=== PATIENT | male | born 2000 | race Two or more races ===

== ENCOUNTER 2020-05-20 15:10 | Emergency (ER) | payer MEDICAID, OTHER ==
[~2020-05-20] VITALS: Ht 172.7 cm; Wt 98.9 kg
[2020-05-20 15:35] VITALS: BP 115/58
== END 2020-05-20 15:35 ==
LOC: ER 15:10
DX: F17.210 Nicotine dependence, cigarettes, uncomplicated; Y09 Assault by unspecified means

== ENCOUNTER 2024-06-11 10:05 | Emergency (ER) | payer MEDICAID, OTHER ==
[~2024-06-11] VITALS: Ht 180.3 cm; Wt 99.2 kg
[2024-06-11 10:43] VITALS: BP 120/76; PULSE 68; RESP 17; TEMP 98.7; O2SAT 97
--- NOTE | 2024-06-11 11:09 | DVH ---
XY L ELBOW 3 VIEW XRAY, INDICATION: r/o fx TECHNICAL DATA: Frontal, oblique and lateral views were obtained of the left elbow. COMPARISON: None FINDINGS: Mildly displaced radial head fracture. Joint spaces are maintained. Alignment at the joint is anatomi c. Soft tissues are within normal limits. No joint effusion is demonstrated. IMPRESSION: Mildly displaced radial head fracture.
--- NOTE | 2024-06-11 11:11 | DVH ---
XY L WRIST 3+ VIEW XRAY, INDICATION: r/o fx TECHNICAL DATA: Frontal , bilateral oblique, and lateral views were obtained of the left wrist. COMPARISON: None FINDINGS: No fracture is identified. Joint spaces are maintained. Alignment is anatomic. Ulnar variance is neut ral. Soft tissues are within normal limits. IMPRESSION: No acute fracture or dislocation of the left wrist.
--- NOTE | 2024-06-11 11:11 | DVH ---
CLINICAL HISTORY: Rule out fracture. No other clinical information provided. TECHNIQUE: Single PA view of the chest and AP and oblique views of the left ribs were obtained. COMPARISON: None FINDINGS: Lungs are clear. No focal consolidation, pneumothorax, or pleural effusion. Cardiac and me diastinal contours are within normal limits in size. Pulmonary vasculature is normal. No evidence of acute fracture identified in the left ribs. IMPRESSION: 1. No evidence of acute disease in the chest. 2. No acute fracture identified in the left ribs.
[2024-06-11] MEDS ORDERED: IBUP-1455 PO (11:30)
[2024-06-11] MEDS: HYDROcodone-ACET 7.5/325MG TAB PO ONE (11:30)
[2024-06-11] MEDS ORDERED: HYDR-4902 PO (11:30)
--- NOTE | 2024-06-11 11:31 | ED.PDOC ---
Musculoskeletal HPI Comments 29-year-old male presents for a possible fractures to the left elbow, left rib and the left wrist after he fell from a 7 ft roof yesterday. Reports his pants got stuck on a nail causing him to fall forward landing on his left side and pain is currently rated as moderate to severe Denies chest pain shortness of breath denies hitting head LOC or taking blood thinners Chief Complaint: Upper Extremity Time Seen by MD: 10:31 Primary Care Provider: none Reviewed Notes: Nurses Notes, Medications, Allergies Allergies: Coded Allergies: NO KNOWN ALLERGIES (Unverified , 05/20/20) Home Meds Active Scripts Ibuprofen Micronized (Ibuprofen) 800 Mg Tab, 800 MG PO TID for 10 Days, #30 TAB 0 Refills Prov:ALLEY RUTLEDGE SECRETARY BOOK KEEPER 06/11/24 Hydrocodone-Acetaminophen (Hydrocodone Bitartrate/AC 5-325 mg) 1 Tab Tab, 1 TAB PO Q8HP PRN for 2 Days, #6 TAB 0 Refills Prov:ALLEY RUTLEDGE SECRETARY BOOK KEEPER 06/11/24 Information Source: Patient Mode of Arrival: Ambulatory Past Medical History PAST MEDICAL HISTORY: Asthma Surgical History: Denies all surgeries Family History Family History: No family hx of Cancer, No family hx of DM, No family hx of Heart angel Social History Smoker: Cigarettes Alcohol: Occasionally Drugs: Marijuana Lives In: Home All Other Systems: Reviewed and Negative (per hpi) Physical Exam General Appearance: No Apparent Distress, Normal HEENT: Head (Head is normocephalic), Normal ENT Inspection, Pharynx Normal, TMs Normal Neck: Full Range of Motion, Non-Tender, Normal, Normal Inspection Respiratory: Chest Non-Tender, Lungs Clear, No Accessory Muscle Use, No Respiratory Distress, Normal Breath Sounds Cardiovascular: No Murmur, No Gallop, Regular Rate/Rhythm Breast Exam: Deferred Gastrointestinal: No Organomegaly, Non Tender, No Pulsatile Mass, Normal Bowel Sounds, Soft Genitalia: Deferred Pelvic: Deferred Rectal: Deferred Extremities: No calf tenderness, Normal capillary refill, Normal inspection, Normal range of motion, Non-tender, No pedal edema Musculoskeletal : Location: Left Extremity Location: Elbow (Swelling to the lateral and medial epicondyle. Tender to palpation. Limited flexion-extension due to pain. Distal neuro sensation intact) Apperance: Normal Neurologic: Alert, No Motor Deficits, Normal Affect, Normal Mood, No Sensory Deficits Cerebellar Function: Normal Reflexes: Normal Skin: Dry, Normal Color, Warm Lymphatic: No Adenopathy Was a procedure done? Was a procedure done?: No Differential Diagnosis EXT Differential Diagnosis: Fracture, Sprain, Dislocation X-Ray, Labs, Meds, VS Vital Signs Date Time Temp Pulse Resp B/P (MAP) Pulse Ox O2 Delivery O2 Flow Rate FiO2 06/11/24 10:43 68 17 97 Room Air 06/11/24 10:43 98.7 68 18 120/76 (91) 97 98.7 06/11/24 10:19 98.7 68 17 120/76 (91) 97 98.7 Current Medications Medications (Trade) Dose Ordered Sig/Ramón Route Start Time Stop Time Status Last Admin Acetaminophen/ Hydrocodone Bitart ([place] 7.5/325MG Tab) 1 tab ONCE ONCE PO 06/11/24 11:30 06/11/24 11:31 DC 06/11/24 11:30 X-Ray, Labs, Meds, VS Comment Immobilization: double sugartong Sling provided Most radial head and neck fractures are not surgical and can be treated conservatively with a simple sling for comfort Checked the [employer] website, no history of narcotic use within the past year. Will prescribe [place] p.o. for pain management. Education provided on possible side effects of medication including drowsiness, nausea, respiratory distress, etc. Do not drive, operate heavy machinery or make legal decisions while taking medication. Follow-up with your PMD within 24 to 48 hours. On reevaluation, patient had symptomatic improvement. Patient is stable for discharge at this time. External notes reviewed. Test results and diagnostic imaging interpreted. All diagnostic findings, discharge care, education and instructions provided Follow-up with PCP in 2 to 3 days Patient verbalized understanding and agreed to treatment plan Vital signs stable, afebrile, no acute distress noted Patient ambulatory with strong steady gait Advised to return precautions for any new or worsening symptoms, return to ER immediately for re-evaluation Patient is aware that the purpose of this visit was for an acute medical emergency requiring emergent stabilization. Chronic conditions, including malignancies have not been ruled out. Patient is instructed to follow up with PCP as directed and discharge instructions for continued care and workup. If unable to arrange follow-up, patient is to return to the emergency department for reassessment. Patient (parent or legal guardian if applicable) was given verbal and written discharge instructions and acknowledges understanding. Time of 1ST Reevaluation: 11:15 Reevaluation 1ST: Improved Patient Education/Counseling: Diagnosis, Treatment Family Education/Counseling: Diagnosis, Treatment Departure 1 Departure Time of Disposition: 11:28 Impression: Primary Impression: Radial head fracture Qualified Codes: S52.122A - Displaced fracture of head of left radius, initial encounter for closed fracture Disposition: HOME / SELF CARE / HOMELESS Condition: Stable e-Prescriptions Ibuprofen Micronized (Ibuprofen) 800 Mg Tab 800 MG PO TID for 10 Days, #30 TAB 0 Refills Prov: ALLEY RUTLEDGE SECRETARY BOOK KEEPER 06/11/24 Hydrocodone-Acetaminophen (Hydrocodone Bitartrate/AC 5-325 mg) 1 Tab Tab 1 TAB PO Q8HP PRN for 2 Days, #6 TAB 0 Refills Prov: ALLEY RUTLEDGE SECRETARY BOOK KEEPER 06/11/24 Critical Care Note Critical Care Time?: No Stability Stability form required: No Heart Score Heart Score: Heart Score Response (Comments) Value History N/A 0 EKG N/A 0 Age N/A 0 Risk Factors N/A 0 Troponin N/A 0 Total 0 ALLEY RUTLEDGE SECRETARY BOOK KEEPER Jun 11, 2024 11:30
== END 2024-06-11 11:50 | disposition home or self-care (01) ==
LOC: ER 10:05
DX: S52.122A Displaced fracture of head of left radius, initial encounter for closed fracture (principal); W18.39XA Other fall on same level, initial encounter; Y93.89 Activity, other specified; Y92.89 Other specified places as the place of occurrence of the external cause; Y99.8 Other external cause status; J45.909 Unspecified asthma, uncomplicated; F17.210 Nicotine dependence, cigarettes, uncomplicated
CPT/HCPCS: 29105; 71101; 73080; 73110